=== PATIENT | female | born 1955 | race Caucasian/White ===

== ENCOUNTER 2016-08-31 05:53 | Day surgery (SDC) | payer BC ==
[2016-08-22 12:07] LABS: HEMATOCRIT 37.2 % (36.0-48.0); HEMOGLOBIN 12.1 g/dL (12.0-16.0)
[2016-08-22 12:23] LABS: BUN (BLOOD UREA NITROGEN) 33 MG/DL (6-23); CALCIUM, SERUM 9.4 MG/DL (8.5-10.4); CHLORIDE, SERUM 104 MMOL/L (96-112); CO2 (CARBON DIOXIDE) 26 MMOL/L (24-34); GFR AFRICAN AMERICAN 35 ML/MIN (>=60); GFR NON AFRICAN AMERICAN 30 ML/MIN (>=60); GLUCOSE, SERUM 118 MG/DL (60-99); POTASSIUM, SERUM 4.5 MMOL/L (3.5-5.3); SODIUM, SERUM 140 MMOL/L (135-148)
--- NOTE | ~2016-08-31 | OP ---
Record Of Operation [facility] [address] [place]. [address] NAME: JENNIFER OLIVER : 55 STATUS : [facility]#: [id number] AGE: 60 ADM/REG DATE : 08/31/16 MR#: [id number] REPORT SERV DATE: 09/07/16 DICTATED BY: JORDIN MOREIRA DATE: 09/07/16 REPORT STATUS : Draft TRANSCRIBED BY: MODL DATE: 09/07/16 DATE OF PROCEDURE: 08/31/2016 ANESTHESIA: General. COMPLICATIONS: None. ESTIMATED BLOOD LOSS: 75 mL. PREOPERATIVE DIAGNOSES: 1. Uterine prolapse. 2. Pelvic pain. 3. Cystocele. 4. Stress urinary incontinence. POSTOPERATIVE DIAGNOSES: 1. Uterine prolapse. 2. Pelvic pain. 3. Cystocele. 4. Stress urinary incontinence. OPERATIONS: 1. Supracervical laparoscopic-assisted vaginal hysterectomy with bilateral salpingo- oophorectomy. 2. Laparoscopic abdominal sacrocolpopexy. 3. Advantage Fit suburethral sling. 4. Anterior repair. 5. Cystoscopy. PROCEDURE IN DETAIL: The patient was taken to the operating room and placed on the operating table in the [facility]. After adequate anesthesia, the patient was prepped and draped in usual sterile fashion. A 2 cm subumbilical incision was performed and carried down sharply through the fascia. Peritoneal cavity was sharply entered and a blunt-tipped trocar was inserted and the abdomen was insufflated with CO2 gas. Next, an 8 mm trocar was inserted in the right and left lower quadrant under direct visualization and a 5 mm in the suprapubic region. Ureters identified and kept out of harm's way at all times. The infundibulopelvic ligaments were skeletonized, cauterized and cut with the LigaSure. Next, the round ligaments and broad ligaments were cauterized and cut with the LigaSure. Next, the uterine vessels were cauterized and cut with the LigaSure. Next, we cut across the superior aspect of the cervix with cautery and placed the uterus, tubes, and ovaries in an Endopouch to remove at a later point. Peritoneum was then dissected off the anterior and posterior vaginal moody. Vertessa mesh was then sutured, one rectangular piece to the posterior vaginal wall and one rectangular piece to the anterior vaginal wall, both were also attached to the cervix. This was done with multiple interrupted 2-0 V-locking sutures. The peritoneum was dissected off the sacral promontory. Both sheaths of the Vertessa mesh were then attached just below the sacral promontory with absorbatacking device. The pelvis Record Of Operation [facility] [address] [place]. [address] NAME: JENNIFER OLIVER : 55 STATUS : DEP [facility] PAT#: [id number] AGE: 60 ADM/REG DATE : 08/31/16 MR#: [id number] REPORT SERV DATE: 09/07/16 DICTATED BY: JORDIN MOREIRA DATE: 09/07/16 REPORT STATUS : Draft TRANSCRIBED BY: KIKO DATE: 09/07/16 was irrigated. Hemostasis was noted to be good. The peritoneum was then closed over the mesh with a running 2-0 Stratafix absorbable suture. Again hemostasis was noted to be good. The Endopouch was removed through the umbilical trocar site. The fascia at that site was reapproximated with 0 Vicryl suture. Skin was reapproximated with 4-0 Monocryl and Dermabond at all sites. Next, attention was turned vaginally. The anterior vaginal wall was sharply and bluntly dissected off the underlying anterior fibromuscular tissue. The anterior fibromuscular tissue was plicated with multiple layers of 0 Vicryl suture. Using the JumpMusic Fit system, needles were inserted upward through the retropubic space and the mesh was placed just distal to the urethrovesical junction for the sling. Anterior compartment was irrigated and hemostasis was noted to be good. Excess anterior vaginal wall was excised and reapproximated with running 2-0 Vicryl suture. Cystoscopy was performed. There was bilateral ureteral efflux of Pyridium dye, and no damage or sutures to the bladder. Ruiz and vaginal pack were placed. The patient tolerated the procedure well and was taken to the recovery room in stable condition. LEVY Jordin Moreira M.D. / [id number] CC: Kareem Mcclain John C.
[~2016-08-31 05:53] MED LIST: ASAB PO; CIP2 PO; CONJUGATED ESTROGENS T; GLUCPH PO; PRINZIDE1 TAB PO; SYN125 PO
[2016-08-31 15:47] LABS: BASOPHILS 0.1 %; BASOPHILS ABSOLUTE 0.02 10/3/uL (0.0-0.16); EOSINOPHILS 0.1 %; EOSINOPHILS ABSOLUTE 0.01 10/3/uL (0.0-0.53); HEMATOCRIT 35.4 % (36.0-48.0); HEMOGLOBIN 11.6 g/dL (12.0-16.0); IMMATURE GRANULOCYTES 0.2 %; IMMATURE GRANULOCYTES ABSOLUTE 0.04 10/3/uL (0.0-0.11); LYMPHOCYTES 2.3 %; LYMPHOCYTES ABSOLUTE 0.39 10/3/uL (0.67-4.30); MANUAL DIFF NO %; MEAN CORPUS HGB CONC 32.8 g/dL (32.0-36.0); MEAN CORPUSCULAR HEMOGLOB 27.8 pg (26.0-34.0); MEAN CORPUSCULAR VOLUME 84.9 fL (80-100); MONOCYTES 3.1 %; MONOCYTES ABSOLUTE 0.52 10/3/uL (0.21-1.20); NEUTROPHILS 94.2 %; PLATELET COUNT 276 10/3/uL (150-400); RBC DISTRIBUTION WIDTH 13.5 % (12.0-16.0); RED CELL COUNT 4.17 10/6/uL (4.0-5.6); WHITE BLOOD CELLS 16.9 10/3/uL (4.5-10.5)
== END 2016-08-31 18:33 | disposition home or self-care (01) ==
LOC: SDC 05:53
PROVIDERS: Obstetrics & Gynecology Gynecology
PROC: 0UT2FZZ Resection of Bilateral Ovaries, Via Natural or Artificial Opening With Percutaneous Endoscopic Assistance (ICD-10-PCS; 2016-08-31)
PROC: 0UT7FZZ Resection of Bilateral Fallopian Tubes, Via Natural or Artificial Opening With Percutaneous Endoscopic Assistance (ICD-10-PCS; 2016-08-31)
PROC: 0TSC0ZZ Reposition Bladder Neck, Open Approach (ICD-10-PCS; 2016-08-31)
PROC: 0JQC0ZZ Repair Pelvic Region Subcutaneous Tissue and Fascia, Open Approach (ICD-10-PCS; 2016-08-31)
PROC: 0UT9FZZ Resection of Uterus, Via Natural or Artificial Opening With Percutaneous Endoscopic Assistance (ICD-10-PCS; principal; 2016-08-31 07:15)
PROC: 0UTC7ZZ Resection of Cervix, Via Natural or Artificial Opening (ICD-10-PCS; 2016-08-31 07:15)
DX: N80.0 Endometriosis of uterus (principal); I10 Essential (primary) hypertension; E03.9 Hypothyroidism, unspecified; E11.9 Type 2 diabetes mellitus without complications; E66.9 Obesity, unspecified; Z68.34 Body mass index [BMI] 34.0-34.9, adult; Z79.84 Long term (current) use of oral hypoglycemic drugs; Z79.899 Other long term (current) drug therapy; Z79.82 Long term (current) use of aspirin; Z79.2 Long term (current) use of antibiotics; Z98.890 Other specified postprocedural states
CPT/HCPCS: 36415; 80048; 82962; 85014; 85018; 85025; 86850; 86900; 86901; 88305; 93005; A9270-GY; C1771; C1781; J0694; J2250; J2270; J2405; J2710; J3010